=== PATIENT | female | born 1965 | race Two or more races ===

== ENCOUNTER 2021-11-22 19:52 | Emergency (ER) | payer OTHER ==
[~2021-11-22] VITALS: Ht 152.4 cm; Wt 56.2 kg
== END 2021-11-22 21:49 | disposition home or self-care (01) ==
LOC: ER 19:52
DX: M12.561 Traumatic arthropathy, right knee (principal); T14.90XS Injury, unspecified, sequela; X50.3XXS Overexertion from repetitive movements, sequela

== ENCOUNTER 2021-11-30 12:00 | Outpatient (CLI) | payer OTHER | END 2021-11-30 12:12 | disposition home or self-care (01) | LOC: MRI 12:00 | DX: S89.91XA Unspecified injury of right lower leg, initial encounter (principal) | CPT/HCPCS: 73718 ==

== ENCOUNTER 2024-08-27 14:20 | Outpatient (CLI) | payer OTHER | END 2024-08-27 14:25 | disposition home or self-care (01) | LOC: TOM 14:20 | DX: R42 Dizziness and giddiness (principal); R55 Syncope and collapse ==